=== PATIENT | female | born 1995 | race African-American/Black ===

== ENCOUNTER 2021-09-20 17:51 | Emergency (ER) | payer MEDICAID ==
[~2021-09-20] VITALS: Ht 162.6 cm; Wt 82.0 kg
[2021-09-20 21:26] VITALS: BP 108/75
== END 2021-09-20 21:26 | disposition home or self-care (01) ==
LOC: ER 17:51
DX: J02.9 Acute pharyngitis, unspecified (principal); R05.9 Cough, unspecified; R51.9 Headache, unspecified; Z20.822 Contact with and (suspected) exposure to COVID-19
CPT/HCPCS: 87426; 99283; C9803